=== PATIENT | male | born 1985 | race Caucasian/White ===

== ENCOUNTER 2019-06-20 18:57 | Emergency (ER) | payer MEDICAID, SELFPAY ==
[2019-06-20 19:00] VITALS: BP 113/64; PULSE 113; RESP 18; TEMP 36.7; O2SAT 99
--- NOTE | 2019-06-20 19:00 | ED.GENADUL_ITS ---
Discharge Plan Disposition Patient Disposition: HOME Condition: Good Discharge Details Chief Complaint: Laceration Clinical Impression: Avulsion of soft tissue Primary Care Provider: None,None ED Provider: Beatris Pate Home Meds and New Rx's Prescriptions: Continued albuterol sulfate 90 mcg/actuation Hfa Aerosol Inhaler 2 puff INHALATION PRN PRNRF: 0 Discharge Instructions Instructions: Laceration (DC), Skin Adhesive Care (ED) Additional Instructions: Keep wound clean, dry, covered. Please keep current dressing on for the next 24 hours. After that time, you may cover with a Band-Aid. Monitor for signs infection including redness, warmth, drainage, increased pain, fever/chills. If you develop these or other new/worsening symptoms please seek care urgently once again. Otherwise, adhesive will come off in the next 1 to 2 weeks. Allow this to come off naturally. Please not apply any ointment over this as it may cause premature breakdown. Referral for primary care will be sent. Medical Decision Making Patient is a pleasant 33-year-old [id number] male presents today with chief complaint of laceration to the right index finger. He reports a prior to arrival he was working at a [employer] when a piece of wood got stuck and he avulsed a small section of the dorsal radial side of the right index finger. He denies other injury the time of the incident. Last tetanus shot was 1 year ago. Denies any numbness or tingling. Currently has pressure dressing in place. On exam, patient appears anxious and uncomfortable. He has a 5 mm triangular loss of tissue coming down to approximately assisted down the nail on the radial side. No bony involvement. Normal ligamentous exam. He has good sensation distal to the wound. Patient and I discussed options to care for the wound. We discussed risk/benefits as well as expected procedural steps of digital block followed by washout and application of adhesive. Patient voiced understanding and wishes to proceed. Procedure note: Using standard sterile precaution, a 1% lidocaine digital block was performed, 6 cc were used. The sufficiently anesthetized the area. The wound was then copiously irrigated with sterile saline and cleansed with chlorhexidine. Explored to base in a bloodless field with no foreign body or debris noted. No bony involvement or ligamentous involvement is noted. A thin layer of adhesive was then applied. Patient tolerated this well. Bulky dressing was then applied over this. Patient and I discussed wound care in depth. In particular, we discussed signs symptoms of infection and when to seek care urgently once again. We did discuss care of the adhesive. Patient is new to the area, I will refer her to a new primary care. All his questions and concerns were addressed and he is in agreement this plan HPI General Mode of arrival: ambulatory . Date/Time Provider Initiated Documentation: 06/20/19 19:00 . Limitations to Documentation: no limitations . Information obtained by: patient and RN notes reviewed . History of Present Illness 33 year old M presents to the emergency department with the chief complaint of Avulsed section of radial dorsal right index finger, described as severe, with intensity rated at 9. Quality is described as stabbing, and is localized to the right. Patient reports no radiation. Patient started experiencing this hour(s) (3) and it has been constant. Immobilization improves symptom(s), Movement worsens symptoms . Patient notes no other symptoms.. Patient did receive the following treatments prior to arrival, NSAID Related Data Home Medications Medication Instructions Recorded Confirmed albuterol sulfate 2 puff INHALATION PRN PRN 06/20/19 06/20/19 Allergies Allergy/AdvReac Type Severity Reaction Status Date / Time No Known Allergies Allergy Unverified 06/20/19 19:05 Review of Systems Constitutional Constitutional: Reports as per HPI, Denies chills and Denies fever(s) Musculoskeletal Musculoskeletal: Reports as per HPI Integumentary/Breasts Skin/Breast: Reports as per HPI Neurologic Neurologic: Reports as per HPI, Denies sensory deficit and Denies paresthesias [facility] Social History Smoking/Tobacco Use Status: Current every day Alcohol Intake: never Drug use: Daily Substance use type: marijuana Do you feel safe at home: Yes Do you feel safe in your relationship?: Yes Exam Const General: cooperative, healthy appearing, comfortable, no acute distress and well developed Nutritional Appearance: average body habitus and well nourished Orientation: alert and awake Resp Effort & Inspection: normal respiratory effort, able to speak in complete sentences and no respiratory distress Cardio Rate: regular rate Rhythm: regular rhythm Skin Trauma: laceration (as drawn below) Neuro General: patient alert and patient awake Cognition: normal cognition Speech: speech normal Gait: normal gait Sensory Exam: no sensory deficits noted Extrem Hand/finger images: 1. area of avulsed tissue. No deep structures appear to be involved. This does involve throughout one third of the nail. Approximately 5 mm at widest point. Triangular in shape. Distal sensation is intact, brisk capillary refill. Patient is not actively bleeding. Psych Appearance: grossly normal and well kempt Mental Status: mental status grossly normal Speech and Movement: speech and movement normal
--- NOTE | 2019-06-21 12:41 | PDOC.ERCMPRO ---
- If Service Date Differs Date of service: 06/21/19 Time of Service: 12:41 Care Management Progress Note At the request of ED provider, CM coordinates a referral to [facility] to assist patient in establishing care with a PCP.
== END 2019-06-20 19:45 | disposition home or self-care (01) ==
LOC: ER 19:36
PROVIDERS: Emergency Provider Physician Assistant
DX: S61.310A Laceration without foreign body of right index finger with damage to nail, initial encounter (principal); W31.2XXA Contact with powered woodworking and forming machines, initial encounter
CPT/HCPCS: 12001

== ENCOUNTER 2021-05-18 03:44 | Outpatient (CLI) | payer MEDICAID, SELFPAY | END 2021-05-18 03:45 | disposition home or self-care (01) | LOC: RT 03:45 | PROVIDERS: Visit Provider Family Medicine ==